=== PATIENT | male | born 1960 | race Caucasian/White ===

== ENCOUNTER 2017-12-25 10:06 | Emergency (ER) | payer BC ==
[~2017-12-25] VITALS: Ht 180.3 cm; Wt 118.0 kg
[~2017-12-25 10:06] MED LIST: ALBU8HFA PO; DIPH25TA62 PO; FAMO-128 PO; FEXO1TAB8 PO; MONT10TA21 PO
[2017-12-25 14:09] VITALS: BP 123/84
== END 2017-12-25 14:24 | disposition home or self-care (01) ==
LOC: ER 10:06
DX: M54.5 Low back pain (principal); M54.6 Pain in thoracic spine; M54.2 Cervicalgia; G89.29 Other chronic pain; Z88.8 Allergy status to other drugs, medicaments and biological substances
CPT/HCPCS: 99284

== ENCOUNTER 2017-12-26 10:41 | Emergency (ER) | payer BC ==
[~2017-12-26] VITALS: Ht 180.3 cm; Wt 122.0 kg
[2017-12-26 10:50] VITALS: BP 127/76
== END 2017-12-26 12:38 | disposition home or self-care (01) ==
LOC: ER 10:42
DX: G89.29 Other chronic pain (principal); M54.5 Low back pain; M54.2 Cervicalgia; I25.10 Atherosclerotic heart disease of native coronary artery without angina pectoris; I10 Essential (primary) hypertension; I25.2 Old myocardial infarction; J45.909 Unspecified asthma, uncomplicated; Z88.8 Allergy status to other drugs, medicaments and biological substances; Z79.899 Other long term (current) drug therapy
CPT/HCPCS: 99281

== ENCOUNTER 2017-12-30 12:56 | Emergency (ER) | payer BC ==
[~2017-12-30] VITALS: Ht 175.3 cm; Wt 122.0 kg
[2017-12-30 15:40] LABS: BASOPHILS % (AUTO) 0.3 % (0-1); EOSINOPHILS # (AUTO) 0.3 X10'3 (0-0.9); EOSINOPHILS % (AUTO) 4.2 % (0-6); HEMATOCRIT 38.9 % (42.0-52.0); HEMOGLOBIN 13.5 g/dl (14.0-17.9); LYMPHOCYTES % (AUTO) 27.6 % (21-51); MEAN CORPUSCULAR HEMOGLOBIN 31.1 PG (27.0-31.0); MEAN CORPUSCULAR HGB CONC 34.8 % (33.0-36.5); MEAN CORPUSCULAR VOLUME 89.3 FL (78-98); MEAN PLATELET VOLUME 7.2 FL (7.4-10.4); MONOCYTES # (AUTO) 0.7 X10'3 (0-0.9); MONOCYTES % (AUTO) 9.8 % (2-12); NEUTROPHILS # (AUTO) 4.3 X10'3 (1.8-7.7); NEUTROPHILS % (AUTO) 58.1 % (42-75); PLATELET COUNT 225 X10'3 (140-440); RED BLOOD COUNT 4.36 X10'6 (4.70-6.10); RED CELL DISTRIBUTION WIDTH 14.3 % (11.5-14.5); WHITE BLOOD COUNT 7.4 X10'3 (4.5-11.0)
[2017-12-30] MEDS ORDERED: methylPREDNISolone sod succ 125mg/2ml vial IV ONE (15:50)
[2017-12-30] MEDS ORDERED: ipratropium/albuterol 3ml nebule NEB ONE (15:50)
[2017-12-30] MEDS ORDERED: normal saline 1000ML IV soln IVB ONE (15:50)
[2017-12-30 15:55] LABS: ALANINE AMINOTRANSFERASE 55 U/L (12-78); ALBUMIN 3.7 G/DL (3.4-5.0); ALBUMIN/GLOBULIN RATIO 0.9 (1.1-1.5); ALKALINE PHOSPHATASE 62 IU/L (46-116); ANION GAP 10 (8-16); ASPARTATE AMINO TRANSFERASE 27 U/L (10-37); BILIRUBIN,TOTAL 0.2 MG/DL (0.1-1.0); BLOOD UREA NITROGEN 23 MG/DL (7-18); BUN/CREATININE RATIO 18.7 (5.4-32.0); CALCIUM 8.7 MG/DL (8.5-10.1); CHLORIDE 103 MMOL/L (99-107); CREATININE 1.23 MG/DL (0.60-1.10); GLUCOSE 101 MG/DL (70-104); POTASSIUM 4.2 MMOL/L (3.5-5.1); SODIUM 141 MMOL/L (135-145); TOTAL CARBON DIOXIDE 28.1 MMOL/L (24-32); TOTAL PROTEIN 7.6 G/DL (6.4-8.2); eGFR 60 ML/MIN
[2017-12-30] MEDS ORDERED: ALBU6.7H INH (16:14)
[2017-12-30] MEDS ORDERED: AMOX-419 PO (16:14)
[2017-12-30] MEDS ORDERED: PRED20TA PO (16:14)
[2017-12-30 17:12] VITALS: BP 125/81
== END 2017-12-30 17:18 | disposition home or self-care (01) ==
LOC: ER 12:57
DX: J44.1 Chronic obstructive pulmonary disease with (acute) exacerbation (principal); I25.10 Atherosclerotic heart disease of native coronary artery without angina pectoris; I10 Essential (primary) hypertension; I25.2 Old myocardial infarction; F17.210 Nicotine dependence, cigarettes, uncomplicated; G89.29 Other chronic pain; Z88.8 Allergy status to other drugs, medicaments and biological substances; Z79.899 Other long term (current) drug therapy
CPT/HCPCS: 36415; 71045; 80053; 83880; 84484; 85025; 93005; 94640; 94760; 96374; 99285; J2930; J7030

== ENCOUNTER 2019-01-19 22:12 | Emergency (ER) | payer BC ==
[~2019-01-19] VITALS: Ht 180.3 cm; Wt 124.1 kg
[~2019-01-19 22:12] MED LIST changes: +ALBU6.7H9 INH
--- NOTE | 2019-01-19 22:17 | NUR ---
Zo carbajal in [facility] - 01/19/19 at 2224 by VINCE pt was seen and treated by richa lynne before nursing assessment.
[2019-01-19] MEDS ORDERED: epiNEPHrine 1 mg/ml inj SQ STA (22:26)
[2019-01-19] MEDS ORDERED: methylPREDNISolone sod succ 125mg/2ml vial IV ONE (22:30)
[2019-01-19] MEDS ORDERED: racepinephrine 11.25mg/0.5ml nebule IH ONE (22:30)
[2019-01-19] MEDS ORDERED: famotidine/PF 10 mg/ml inj IV ONE (22:30)
[2019-01-19] MEDS ORDERED: normal saline 1000ML IV soln IVB ONE (22:30)
[2019-01-19] MEDS ORDERED: EPIN0.3P3 SQ (23:55)
[2019-01-20 00:19] VITALS: BP 145/85
== END 2019-01-20 00:23 | disposition home or self-care (01) ==
LOC: ER 22:13
DX: T78.09XA Anaphylactic reaction due to other food products, initial encounter (principal); R06.02 Shortness of breath; L50.9 Urticaria, unspecified; I25.10 Atherosclerotic heart disease of native coronary artery without angina pectoris; I10 Essential (primary) hypertension; I25.2 Old myocardial infarction; J45.909 Unspecified asthma, uncomplicated; G47.30 Sleep apnea, unspecified; G89.29 Other chronic pain; F32.9 Major depressive disorder, single episode, unspecified; Z98.890 Other specified postprocedural states; Z88.8 Allergy status to other drugs, medicaments and biological substances; Z79.899 Other long term (current) drug therapy; X58.XXXA Exposure to other specified factors, initial encounter; Y93.89 Activity, other specified; Y92.89 Other specified places as the place of occurrence of the external cause; Y99.8 Other external cause status
CPT/HCPCS: 94640; 94760; 96372; 96374; 96375; 99291; J0171; J2930; J3490; J7030

== ENCOUNTER 2019-03-02 10:12 | Observation (INO) | payer BC ==
[~2019-03-02] VITALS: Ht 180.3 cm; Wt 120.5 kg
[~2019-03-02 10:12] MED LIST changes: +EPIN0.3P3 SQ
--- NOTE | 2019-03-02 10:24 | NUR ---
Dr Lehman made aware of patient's status. No new orders at this time.
--- NOTE | 2019-03-02 10:30 | NUR ---
Patient states he needs to go to the bathroom and have a diarrhea BM, Patient refuses bedsie Dr Dominik alford aware, Staff to stay with patient at all times.
--- NOTE | 2019-03-02 10:35 | NUR ---
Patient back to room via wheelchair from restroom, patient states he is dizzy, pale, patient non responsive, respirations equal, Dr Lehman at bedside, NS IVF started.
--- NOTE | 2019-03-02 10:38 | NUR ---
Patient awake, asked where he is, states he feels better, oriented x4.
[2019-03-02] MEDS ORDERED: normal saline 1000ml 1,000 ML IV ONE ×3 (10:45)
[2019-03-02] MEDS ORDERED: LIDOcaine 2% 10ml TOPICAL JELLY (Urojet) MM ONE (10:50)
[2019-03-02 11:08] LABS: BASOPHILS % (AUTO) 0.4 % (0-1); EOSINOPHILS # (AUTO) 0.1 X10'3 (0-0.9); EOSINOPHILS % (AUTO) 1.5 % (0-6); HEMATOCRIT 39.5 % (42.0-52.0); HEMOGLOBIN 13.3 g/dl (14.0-17.9); LYMPHOCYTES # (AUTO) 3.2 X10'3 (1.1-4.8); LYMPHOCYTES % (AUTO) 35.1 % (21-51); MEAN CORPUSCULAR HEMOGLOBIN 31.8 PG (27.0-31.0); MEAN CORPUSCULAR HGB CONC 33.7 g/dL (33.0-36.5); MEAN CORPUSCULAR VOLUME 94.4 FL (78-98); MEAN PLATELET VOLUME 7.1 FL (7.4-10.4); MONOCYTES # (AUTO) 0.9 X10'3 (0-0.9); MONOCYTES % (AUTO) 10.2 % (2-12); NEUTROPHILS # (AUTO) 4.8 X10'3 (1.8-7.7); NEUTROPHILS % (AUTO) 52.8 % (42-75); PLATELET COUNT 264 X10'3 (140-440); RED BLOOD COUNT 4.18 X10'6 (4.70-6.10); RED CELL DISTRIBUTION WIDTH 13.6 % (11.5-14.5); WHITE BLOOD COUNT 9.1 X10'3 (4.5-11.0)
[2019-03-02 11:22] LABS: CLARITY,URINE CLEAR (Clear); COLOR,URINE YELLOW (Yellow); GLUCOSE, URINE NEGATIVE (Neg); KETONES,URINE NEGATIVE (Neg); LEUKOCYTE ESTERASE ,URINE NEGATIVE (Neg); NITRITES, URINE NEGATIVE (Neg); OCCULT BLOOD,URINE TRACE-INTACT (Neg); PH,URINE 5.5 (4.8-8.0); PROTEIN,URINE NEGATIVE (Neg); UROBILINOGEN,URINE 0.2 E.U/dL (0.2-1.0)
[2019-03-02 11:23] LABS: ALANINE AMINOTRANSFERASE 41 U/L (12-78); ALBUMIN 3.5 G/DL (3.4-5.0); ALBUMIN/GLOBULIN RATIO 1.1 (1.1-1.5); ALKALINE PHOSPHATASE 58 IU/L (46-116); ANION GAP 10 (8-16); ASPARTATE AMINO TRANSFERASE 24 U/L (10-37); BILIRUBIN,TOTAL 0.3 MG/DL (0.1-1.0); BLOOD UREA NITROGEN 25 MG/DL (7-18); BUN/CREATININE RATIO 17.1 (5.4-32.0); CALCIUM 8.7 MG/DL (8.5-10.1); CHLORIDE 105 MMOL/L (99-107); CREATININE 1.46 MG/DL (0.60-1.10); ETHANOL < 0.010 GM/DL (0.0-0.010); GLUCOSE 181 MG/DL (70-104); LIPASE 122 U/L (73-393); SODIUM 141 MMOL/L (135-145); TOTAL CARBON DIOXIDE 25.7 MMOL/L (24-32); TOTAL PROTEIN 6.8 G/DL (6.4-8.2); eGFR 49 ML/MIN
[2019-03-02 11:23] LABS: URINE AMPHETAMINE SCREEN POSITIVE (Neg); URINE BARBITUATE SCREEN NEGATIVE (Neg); URINE BENZODIAZEPINES SCREEN NEGATIVE (Neg); URINE CANNABINOID SCREEN NEGATIVE (Neg); URINE COCAINE SCREEN NEGATIVE (Neg); URINE METHADONE SCREEN NEGATIVE (Neg); URINE OPIATE SCREEN NEGATIVE (Neg); URINE PHENCYCLIDINE SCREEN NEGATIVE (Neg)
[2019-03-02 11:29] LABS: UA COLLECTION TYPE FOLEY CATH
[2019-03-02 11:36] LABS: SQUAMOUS EPITHELIAL CELL,UR FEW /LPF (FEW)
[2019-03-02 11:37] LABS: MUCUS STRANDS FEW /LPF (Neg)
[2019-03-02 11:43] LABS: WBC,URINE 0-4 /HPF (0-4)
[2019-03-02 11:45] LABS: BACTERIA,URINE NONE SEEN /HPF (Neg)
[2019-03-02 11:47] LABS: TRANSITIONAL EPI CELLS,URINE MODERATE /HPF
[2019-03-02] MEDS ORDERED: LORA-268 PO (13:09)
[2019-03-02] MEDS ORDERED: ATOR10TA70 PO (13:09)
[2019-03-02] MEDS ORDERED: AMPH10TA2 PO (13:09)
[2019-03-02] MEDS ORDERED: GABA-532 PO (13:09)
[2019-03-02] MEDS ORDERED: ESCI20TA38 PO (13:09)
[2019-03-02] MEDS ORDERED: GUAN2TAB PO (13:09)
[2019-03-02] MEDS ORDERED: LISI-600 PO (13:09)
[2019-03-02] MEDS ORDERED: FLUT1BLS11 PO (13:09)
[2019-03-02] MEDS ORDERED: MULT-955 PO (13:17)
[2019-03-02] MEDS ORDERED: CYAN1TAB65 SL (13:17)
[2019-03-02] MEDS ORDERED: FEXO180T94 PO (13:17)
[2019-03-02] MEDS ORDERED: CHOL100046 PO (13:17)
[2019-03-02] MEDS ORDERED: EPIN0.3A3 IM (13:17)
[2019-03-02] MEDS ORDERED: ASCO500C15 PO (13:17)
[2019-03-02] MEDS ORDERED: ACET-812 PO (13:22)
[2019-03-02] MEDS ORDERED: CHOL200052 PO (13:24)
[2019-03-02] MEDS ORDERED: ALBU18HF2 PO (13:32)
[2019-03-02] MEDS ORDERED: albuterol 2.5 MG/3 ML nebule NEB PRN (13:50)
[2019-03-02] MEDS ORDERED: EPINEPHRINE IM PRN (13:50)
[2019-03-02] MEDS ORDERED: LORazepam 0.5 MG tablet PO PRN (13:50)
[2019-03-02] MEDS ORDERED: magnesium hydroxide 30ml (MOM) UD suspension PO PRN (13:55)
[2019-03-02] MEDS ORDERED: ondansetron/PF 4mg/2ml inj IV PRN (13:55)
[2019-03-02] MEDS ORDERED: magnesium 4gm in 100ml NS 100 ML IV PRN (13:55)
[2019-03-02] MEDS ORDERED: magnesium 2GM in 50ml NS 50 ML IV PRN (13:55)
[2019-03-02] MEDS ORDERED: acetaminophen 325mg tablet PO PRN (13:55)
[2019-03-02] MEDS ORDERED: potassium CL 10mEq/100ml bag 100 ML IV PRN ×2 (13:55)
[2019-03-02] MEDS ORDERED: mag hydrox/Alum hydrox/simeth 30ml oral suspension PO PRN (13:55)
[2019-03-02] MEDS ORDERED: potassium Cl 20 mEq SR tablet PO PRN ×2 (13:55)
[2019-03-02] MEDS ORDERED: magnesium Cl slow-release 64mg tablet PO PRN (13:55)
[2019-03-02] MEDS: normal saline 1000ml 1,000 ML IV SCH (14:38)
[2019-03-02 15:28] VITALS: BP 108/77
--- NOTE | 2019-03-02 16:30 | NUR ---
Nutrition consult for extensive food allergies. Patient and family met at bedside, patient reports he is able to eat dairy and meat only. Pt asking for turkey, chicken, pork, beef, milk, cottage cheese, and vanilla ice cream, discussed with dietary. Addendum: 03/02/19 at [address] Amended: Links added.
--- NOTE | 2019-03-02 18:28 | NUR ---
Gave report to Jocelyn HUERTA.
[2019-03-02 20:00] VITALS: BP 103/71
[2019-03-02] MEDS: budesonide 0.5mg/2ml UD nebule IH SCH (20:06)
[2019-03-02] MEDS: albuterol 2.5 MG/3 ML nebule NEB SCH (20:06)
[2019-03-02] MEDS: gabapentin 300mg capsule PO SCH (22:14)
[2019-03-02] MEDS: dextroamphetamine/amphetamine 5mg tablet PO SCH (22:17)
[2019-03-02] MEDS: guanFACINE 1 mg tablet PO SCH (23:50)
[2019-03-03] VITALS: BP 93/60
[2019-03-03] MEDS: normal saline 1000ml 1,000 ML IV SCH (02:22)
[2019-03-03] MEDS: albuterol 2.5 MG/3 ML nebule NEB SCH ×2 (02:34→09:19)
[2019-03-03 05:22] LABS: BASOPHILS % (AUTO) 0.4 % (0-1); EOSINOPHILS # (AUTO) 0.1 X10'3 (0-0.9); EOSINOPHILS % (AUTO) 1.3 % (0-6); HEMATOCRIT 36.7 % (42.0-52.0); HEMOGLOBIN 12.4 g/dl (14.0-17.9); LYMPHOCYTES # (AUTO) 2.2 X10'3 (1.1-4.8); LYMPHOCYTES % (AUTO) 29.7 % (21-51); MEAN CORPUSCULAR HEMOGLOBIN 31.9 PG (27.0-31.0); MEAN CORPUSCULAR HGB CONC 33.7 g/dL (33.0-36.5); MEAN CORPUSCULAR VOLUME 94.8 FL (78-98); MEAN PLATELET VOLUME 7.2 FL (7.4-10.4); MONOCYTES # (AUTO) 0.5 X10'3 (0-0.9); MONOCYTES % (AUTO) 7.4 % (2-12); NEUTROPHILS # (AUTO) 4.5 X10'3 (1.8-7.7); NEUTROPHILS % (AUTO) 61.2 % (42-75); PLATELET COUNT 217 X10'3 (140-440); RED BLOOD COUNT 3.87 X10'6 (4.70-6.10); RED CELL DISTRIBUTION WIDTH 13.5 % (11.5-14.5); WHITE BLOOD COUNT 7.4 X10'3 (4.5-11.0)
--- NOTE | 2019-03-03 05:55 | NUR ---
FC discontinue this morning @0550. Patient educated to use the urinal when he voids and to inform the nurse. Patient states understanding.
[2019-03-03 05:56] LABS: ALBUMIN 3.6 G/DL (3.4-5.0); ANION GAP 9 (8-16); BILIRUBIN,TOTAL 0.3 MG/DL (0.1-1.0); BLOOD UREA NITROGEN 26 MG/DL (7-18); BUN/CREATININE RATIO 22.2 (5.4-32.0); CALCIUM 8.5 MG/DL (8.5-10.1); CHLORIDE 108 MMOL/L (99-107); CREATININE 1.17 MG/DL (0.60-1.10); GLUCOSE 118 MG/DL (70-104); MAGNESIUM 1.8 MG/DL (1.5-2.4); POTASSIUM 3.4 MMOL/L (3.5-5.1); SODIUM 142 MMOL/L (135-145); TOTAL CARBON DIOXIDE 25.4 MMOL/L (24-32); TOTAL PROTEIN 6.9 G/DL (6.4-8.2); eGFR 64 ML/MIN
[2019-03-03 05:57] LABS: ALANINE AMINOTRANSFERASE 35 U/L (12-78); ALBUMIN/GLOBULIN RATIO 1.1 (1.1-1.5); ALKALINE PHOSPHATASE 50 IU/L (46-116); ASPARTATE AMINO TRANSFERASE 20 U/L (10-37)
--- NOTE | 2019-03-03 06:35 | NUR ---
Problems reprioritized. Patient report given, questions answered & plan of care reviewed with Julissa HUERTA.
[2019-03-03 07:25] VITALS: BP 103/74
[2019-03-03] MEDS: gabapentin 300mg capsule PO SCH (07:42)
[2019-03-03] MEDS: dextroamphetamine/amphetamine 5mg tablet PO SCH (07:44)
[2019-03-03] MEDS ORDERED: vitamin D (cholecalciferol) 1,000 unit tablet PO SCH (08:00)
[2019-03-03] MEDS ORDERED: ascorbic acid 500mg tablet PO SCH (08:00)
[2019-03-03] MEDS ORDERED: acetaminophen 325mg tablet PO SCH (08:00)
[2019-03-03] MEDS ORDERED: K and/or MAG REPLACEMENT MC SCH (08:00)
[2019-03-03] MEDS ORDERED: enoxaparin 40mg/0.4ml syringe SQ SCH (08:00)
[2019-03-03] MEDS ORDERED: citalopram 20mg tablet PO SCH (08:00)
[2019-03-03] MEDS: guanFACINE 1 mg tablet PO SCH (08:00)
[2019-03-03] MEDS ORDERED: CYANOCOBALAMIN SL SCH (08:00)
[2019-03-03] MEDS ORDERED: montelukast 10mg tablet PO SCH (08:00)
[2019-03-03] MEDS ORDERED: atorvastatin 10mg tablet PO SCH (08:00)
[2019-03-03] MEDS ORDERED: non-formulary drug (Fluticasone Propion/Salmeterol (Wixela 500-50 Inhub) 1 PUFF) PO SCH (08:00)
[2019-03-03] MEDS ORDERED: loratadine 10mg tablet PO SCH (08:00)
[2019-03-03] MEDS ORDERED: multivitamins, therapeutics tablet PO SCH (08:00)
[2019-03-03] MEDS ORDERED: COBAMAMIDE SL SCH (08:00)
[2019-03-03] MEDS: budesonide 0.5mg/2ml UD nebule IH SCH (09:19)
[2019-03-03 11:25] VITALS: BP 142/88
--- NOTE | 2019-03-03 11:44 | NUR ---
Patient discharged home with daughter, stable and appropriate. IV and six horse hitch driver removed. All belongings taken from room. No new medications.
== END 2019-03-03 11:45 | disposition home or self-care (01) ==
LOC: ER 10:13 → ED HOLD 14:34 → EDBEDREQ 14:39 → EDBEDREQTM 14:39 → SUR 3N 15:30
PROVIDERS: ADMIT Family Medicine; ATTEND Family Medicine
DX: T78.2XXA Anaphylactic shock, unspecified, initial encounter (principal); I95.9 Hypotension, unspecified; F95.2 Tourette's disorder; I25.2 Old myocardial infarction; E78.00 Pure hypercholesterolemia, unspecified; F32.9 Major depressive disorder, single episode, unspecified; E78.5 Hyperlipidemia, unspecified; M54.30 Sciatica, unspecified side; N17.9 Acute kidney failure, unspecified; I12.9 Hypertensive chronic kidney disease with stage 1 through stage 4 chronic kidney disease, or unspecified chronic kidney disease; N18.9 Chronic kidney disease, unspecified; G47.33 Obstructive sleep apnea (adult) (pediatric); J45.909 Unspecified asthma, uncomplicated; E87.71 Transfusion associated circulatory overload; I25.10 Atherosclerotic heart disease of native coronary artery without angina pectoris; Z99.89 Dependence on other enabling machines and devices; Z87.891 Personal history of nicotine dependence; Z79.899 Other long term (current) drug therapy; Z88.8 Allergy status to other drugs, medicaments and biological substances; Z88.1 Allergy status to other antibiotic agents; Z91.018 Allergy to other foods; Y84.8 Other medical procedures as the cause of abnormal reaction of the patient, or of later complication, without mention of misadventure at the time of the procedure
CPT/HCPCS: 36415; 80053; 80305; 80320; 81001; 83690; 83735; 84484; 85025; 87081; 93005; 94640; 94760; 96360; 96361; 99284; G0378; J7030; J1650; J7626

== ENCOUNTER → 2023-07-17 | Outpatient (CLI) | payer BC ==
[~2023-07-17] MED LIST changes: +ACET-812 PO; +ALBU18HF2 PO; -ALBU6.7H9 INH; -ALBU8HFA PO; +AMPH10TA2 PO; +ASCO500C18 PO; +ATOR10TA70 PO; +CHOL200052 PO; +CYAN1TAB65 SL; -DIPH25TA62 PO; +EPIN0.3A3 IM; -EPIN0.3P3 SQ; +ESCI20TA39 PO; -FAMO-128 PO; +FEXO180T94 PO; -FEXO1TAB8 PO; +FLUT1BLS11 PO; +GABA-532 PO; +GUAN2TAB PO; +LISI20TA28 PO; +LORA-268 PO; +MONT-48 PO; -MONT10TA21 PO; +MULT-955 PO
== END | disposition home or self-care (01) ==
LOC: MRI 11:04
PROVIDERS: ATTEND Pediatrics Sports Medicine
DX: M47.812 Spondylosis without myelopathy or radiculopathy, cervical region (principal); M48.03 Spinal stenosis, cervicothoracic region; M50.30 Other cervical disc degeneration, unspecified cervical region; M48.061 Spinal stenosis, lumbar region without neurogenic claudication; M47.816 Spondylosis without myelopathy or radiculopathy, lumbar region; M51.37 Other intervertebral disc degeneration, lumbosacral region; M54.50 Low back pain, unspecified; M79.10 Myalgia, unspecified site; M46.1 Sacroiliitis, not elsewhere classified; M79.642 Pain in left hand; G56.00 Carpal tunnel syndrome, unspecified upper limb
CPT/HCPCS: 72141